=== PATIENT | female | born 1995 | race Two or more races ===

== ENCOUNTER → 2017-11-21 | Outpatient (CLI) | payer BC | END | disposition home or self-care (01) | LOC: US 09:19 | DX: O26.842 Uterine size-date discrepancy, second trimester (principal); Z3A.21 21 weeks gestation of pregnancy | CPT/HCPCS: 76805 ==

== ENCOUNTER → 2018-02-19 | Outpatient (CLI) | payer BC, OTHER ==
--- NOTE | 2018-02-19 17:00 | RAD ---
Obstetrical ultrasound, 02/19/2018: HISTORY: Size and date discrepancy Comparison is made to a study from 11/21/2017. There is a single intrauterine fetus in a cephalic orientation. The biparietal diameter measures 9.1 cm suggesting a gestational age of 37 weeks. The femur length measurement suggests a gestational age of 35-36 weeks. The average gestational age based on all the measurements is 36 weeks and 1 day yielding a sonographic EDC of 03/18/2018. The EDC from the 11/21/2017 exam was 03/28/2018 and is probably more accurate considering the stage in at which it was obtained. This mild dating discrepancy suggests a constitutionally large fetus. Normal activity and heart motion were seen. A four-chamber heart is evident with a heart rate of 127 bpm. The weight was estimated at 6 pounds and 0 ounces +/- 14 ounces. The head to abdominal circumference ratio is within normal limits. Fluid is identified in the bladder and stomach. The visualized portions of the spine were unremarkable. The kidneys were not adequately visualized at this time due to position. A three-vessel umbilical cord was identified with a normal cord insertion site. The amniotic fluid index is 12.7 which is within normal limits. The placenta is located posteriorly extending into the fundal region. The cervix was not adequately visualized due to the overlying head. IMPRESSION: Single viable intrauterine fetus as described above, demonstrating satisfactory interval growth since 11/21/2017. Electronically signed by: Adrian Browne MD (02/19/2018 4:57 PM) [facility]
== END | disposition home or self-care (01) ==
LOC: US 15:48
PROVIDERS: ATTEND Obstetrics & Gynecology
DX: O26.843 Uterine size-date discrepancy, third trimester (principal); Z3A.36 36 weeks gestation of pregnancy
CPT/HCPCS: 76805